=== PATIENT | male | born 1975 | race African-American/Black ===

== ENCOUNTER 2019-06-02 11:51 | Emergency (ER) | payer MEDICAID ==
[~2019-06-02] VITALS: Ht 170.2 cm; Wt 75.0 kg
[~2019-06-02 11:51] MED LIST: BENZ1TAB7; ESCI5TAB; METO100T3; RISP1TAB
[2019-06-02] MEDS ORDERED: DEXAMETHASONE 10 MG/ML VIAL IM ONE (13:00)
[2019-06-02] MEDS ORDERED: KETOROLAC 30MG/ML VIAL IM ONE (13:00)
[2019-06-02] MEDS ORDERED: DEXAMETHASONE 4MG/ML 1ML VIAL IM ONE (13:00)
[2019-06-02 13:31] VITALS: BP 129/91
== END 2019-06-02 13:34 | disposition home or self-care (01) ==
LOC: ER 11:51
DX: J02.9 Acute pharyngitis, unspecified (principal); I10 Essential (primary) hypertension; R56.9 Unspecified convulsions; Z87.891 Personal history of nicotine dependence
CPT/HCPCS: 96372; 99283; J1100; J1885

== ENCOUNTER 2022-03-03 10:09 | Emergency (ER) | payer MEDICAID ==
[~2022-03-03] VITALS: Ht 177.8 cm; Wt 91.0 kg
[2022-03-03 10:20] VITALS: BP 135/96
[2022-03-03] MEDS ORDERED: HYDROCODONE/ACETAMINOPHEN 5/325MG TABLET PO ONE (11:45)
[2022-03-03] MEDS ORDERED: HYDR-4005 MT ×2 (11:50)
[2022-03-03] MEDS ORDERED: HYDR-4001 MT ×2 (12:08→12:12)
[2022-03-03] MEDS ORDERED: IBUP-2028 MT (12:15)
[2022-03-03] MEDS ORDERED: TOPUD MT (12:15)
== END 2022-03-03 12:30 | disposition home or self-care (01) ==
LOC: ER 10:09
DX: S22.42XA Multiple fractures of ribs, left side, initial encounter for closed fracture (principal); I10 Essential (primary) hypertension; R56.9 Unspecified convulsions; Y08.89XA Assault by other specified means, initial encounter; Y93.9 Activity, unspecified; Y92.9 Unspecified place or not applicable
CPT/HCPCS: 71045; 99283